=== PATIENT | female | born 1945 | race Caucasian/White ===

== ENCOUNTER 2016-06-04 15:07 | Outpatient (CLI) | payer MEDICARE | END 2016-06-04 15:08 | disposition home or self-care (01) | DX: K11.8 Other diseases of salivary glands (principal) ==

== ENCOUNTER 2017-03-28 10:51 | Day surgery (SDC) | payer MEDICARE ==
[2017-03-28] MEDS ORDERED: LACTATED RINGERS 1,000 ML IV ONE (11:29)
[2017-03-28] MEDS ORDERED: MIDAZOLAM 2 MG/2 ML VIAL IVP ONE (12:27)
[2017-03-28] MEDS ORDERED: fentaNYL 100 MCG/2 ML VIAL IVP ONE (12:27)
[2017-03-28 15:07] VITALS: BP 161/78
== END 2017-03-28 10:52 | disposition home or self-care (01) ==
LOC: SDS 10:51
PROVIDERS: ATTEND Surgery
PROC: 0DB78ZX Excision of Stomach, Pylorus, Via Natural or Artificial Opening Endoscopic, Diagnostic (ICD-10-PCS; principal; 2017-03-28 12:15)
PROC: 0DJD8ZZ Inspection of Lower Intestinal Tract, Via Natural or Artificial Opening Endoscopic (ICD-10-PCS; 2017-03-28 12:15)
DX: Z12.11 Encounter for screening for malignant neoplasm of colon (principal); K29.80 Duodenitis without bleeding; K44.9 Diaphragmatic hernia without obstruction or gangrene; K29.70 Gastritis, unspecified, without bleeding; Z86.010 Personal history of colon polyps; K64.8 Other hemorrhoids; Z79.82 Long term (current) use of aspirin
CPT/HCPCS: 43239; G0105; J7120

== ENCOUNTER 2017-05-08 11:50 | Outpatient (CLI) | payer MEDICARE ==
--- NOTE | 2017-05-10 09:22 | Mammography Report ---
DATE OF SERVICE: 05/08/2017 DIGITAL SCREENING MAMMOGRAM: 05/08/2017 CLINICAL INDICATION: A 71-year-old, for screening. COMPARISON: 03/2016, 02/2015, 01/2014, 12/2012, 12/2011, 11/2010, 07/2009. TECHNIQUE: Routine CC and MLO projections were obtained of the breasts. FINDINGS: The breasts demonstrate scattered fibroglandular densities bilaterally. Coarse and punctate, typically benign calcifications are present. No suspicious masses, clustered microcalcifications, or regions of architectural distortion are identified. IMPRESSION: BENIGN FINDINGS. RECOMMENDATION: ROUTINE ANNUAL SCREENING UNLESS OTHERWISE CLINICALLY INDICATED. BIRADS CATEGORY 2-BENIGN FINDINGS. STANDARD QUALIFYING STATEMENTS: 1. This examination was reviewed with the aid of Computer-Aided Detection (CAD). 2. A negative or benign imaging report should not delay biopsy if clinically suspicious findings are present. Consider surgical consultation if warranted. More than 5% of cancers are not identified by imaging. 3. Dense breasts may obscure an underlying neoplasm. TD: 05/10/2017 10:21
== END 2017-05-08 11:51 | disposition home or self-care (01) ==
LOC: DI.N 11:50
PROVIDERS: ATTEND Family Medicine
DX: Z12.31 Encounter for screening mammogram for malignant neoplasm of breast (principal)
CPT/HCPCS: 77067

== ENCOUNTER 2017-05-10 12:58 | Outpatient (CLI) | payer MEDICARE ==
--- NOTE | 2017-05-16 09:34 | DEXA Report ---
DATE OF SERVICE: 05/10/2017 DEXA SCAN: 05/10/2017 CLINICAL INDICATION: Postmenopausal. TECHNIQUE: Dual energy x-ray absorptiometry (DXA) was performed on a [employer] system. Regions measured are the AP spine, femoral neck, and, if needed, forearm. COMPARISON: None. In accordance with the International Society for Clinical Densitometry (ISCD) guidelines, data from previous exams may be reanalyzed using current recommendations and techniques. This is done to allow a more accurate basis for comparison with the current study. FINDINGS: The data for the lumbar spine is as follows: REGION BMD (g/cm/cm) T-SCORE Z-SCORE L1 0.885 -2.0 -0.6 L2 0.971 -1.9 -0.4 L3 1.087 -0.9 0.5 L4 1.093 -0.9 0.6 TOTAL 1.017 -1.4 0.1 NOTE: All evaluable vertebrae are used for classification. The data for the hip is as follows: REGION BMD (g/cm/cm) T-SCORE Z-SCORE Neck 0.933 -0.8 0.9 TOTAL 1.033 0.2 1.7 NOTE: The femoral neck or total proximal femur, whichever is lowest, is used for classification. IMPRESSION: THE WHO CLASSIFICATION BASED ON THE INTERNATIONAL REFERENCE STANDARD IS OSTEOPENIA. THE FRACTURE RISK IS INCREASED. RECOMMENDATION: Patients with diagnosis of osteoporosis or osteopenia should have regular bone mineral density assessment. For those eligible for Medicare, routine testing is allowed once every 2 years. Testing frequency can be increased for patients who have rapidly progressing disease or for those who are receiving medical therapy to restore bone mass. COMMENT: World Health Organization (WHO) definitions for osteoporosis and osteopenia: NORMAL BMD: T-score at 1.0 or higher, fracture risk is low. OSTEOPENIA BMD: T-score between 1.0 and -2.5, fracture risk is increased. OSTEOPOROSIS BMD: T-score at 2.5 or lower, fracture risk high. National Osteoporosis Foundation recommends 1. Obtain adequate dietary calcium (at least 1200 mg per day) and vitamin D (400 -800 international units per day). 2. Participate, as appropriate, in regular weightbearing and muscle- strengthening exercise. 3. Avoid tobacco use and reduce alcohol and caffeine intake. 4. For more detailed information see the website at www.NOF.org. TD: 05/10/2017 16:44 MTDTree
== END 2017-05-10 12:59 | disposition home or self-care (01) ==
LOC: DI 12:58
PROVIDERS: ATTEND Family Medicine
DX: M81.0 Age-related osteoporosis without current pathological fracture (principal); I10 Essential (primary) hypertension; Z78.0 Asymptomatic menopausal state
CPT/HCPCS: 77080

== ENCOUNTER 2017-07-09 08:00 | Outpatient (CLI) | payer MEDICARE ==
[2017-07-09 18:55] LABS: BASOPHILS % (AUTO) 0.6 %; EOSINOPHILS # (AUTO) 0.1 10^3/uL (0.0-0.7); EOSINOPHILS % (AUTO) 1.3 %; HGB - HEMOGLOBIN 13.3 g/dL (12.0-16.0); LYMPHOCYTES # (AUTO) 2.8 10^3/uL (1.5-3.5); LYMPHOCYTES % (AUTO) 39.6 %; MEAN CORPUSCULAR HEMOGLOBIN 30.2 pg (27.0-31.0); MEAN CORPUSCULAR HGB CONC 33.1 g/dL (32.0-36.0); MEAN CORPUSCULAR VOLUME 91.4 fL (81.0-99.0); MEAN PLATELET VOLUME 8.9 fL (7.9-10.8); MONOCYTES # (AUTO) 0.7 10^3/uL (0.0-1.0); MONOCYTES % (AUTO) 9.4 %; NEUTROPHILS # (AUTO) 3.5 10^3/uL (1.5-6.6); NEUTROPHILS % (AUTO) 49.1 %; PLT - PLATELET COUNT 269 10^3/uL (130-450); RED BLOOD COUNT 4.39 10^6/uL (4.20-5.40); RED CELL DISTRIBUTION WIDTH 13.4 % (12.0-15.0)
[2017-07-09 19:17] LABS: ALBUMIN 3.9 g/dL (3.2-5.5); ALBUMIN/GLOBULIN RATIO 1.4 (1.0-2.2); ALKALINE PHOSPHATASE 57 IU/L (42-121); ALT ALANINE AMINOTRANSFERASE 44 IU/L (10-60); AST ASPARTATE AMINOTRANSFERASE 33 IU/L (10-42); BILIRUBIN,TOTAL 0.6 mg/dL (0.2-1.0); BUN - BLOOD UREA NITROGEN 19 mg/dL (6-20); CALCIUM 8.7 mg/dL (8.5-10.3); CARBON DIOXIDE - CO2 26 mmol/L (21-32); CHLORIDE 104 mmol/L (101-111); CHOL/HDL RATIO 3.1 (<4.4); CHOLESTEROL 141 mg/dL; CREATININE 0.5 mg/dL (0.4-1.0); GFR - MDRD 121 (>89); GLUCOSE 88 mg/dL (70-100); HDL CHOLESTEROL 46 mg/dL; LDL CHOLESTEROL,CALCULATED 70 mg/dL; LDL/HDL RATIO 1.5 (<4.4); SODIUM 140 mmol/L (135-145); TOTAL PROTEIN 6.6 g/dL (6.7-8.2); VLDL CHOLESTEROL 25 mg/dL
[2017-07-09 19:51] LABS: HB2 TOTAL 14.3 g/dL; HEMOGLOBIN A1C 0.61 g/dL; HEMOGLOBIN A1C % 6.1 % (4.6-6.2)
== END 2017-07-09 08:01 | disposition home or self-care (01) ==
LOC: LAB.WCP 08:00
PROVIDERS: ATTEND Family Medicine
DX: I10 Essential (primary) hypertension (principal); R73.09 Other abnormal glucose
CPT/HCPCS: 36415; 80053; 80061; 83036; 83721; 85025

== ENCOUNTER 2017-08-16 10:59 | Outpatient (CLI) | payer MEDICARE | END 2017-08-16 11:00 | disposition home or self-care (01) | LOC: DI 10:59 | PROVIDERS: ATTEND Family Medicine | DX: R01.1 Cardiac murmur, unspecified (principal) | CPT/HCPCS: 93306 ==

== ENCOUNTER 2018-05-27 10:52 | Outpatient (CLI) | payer MEDICARE ==
--- NOTE | 2018-05-28 10:08 | Mammography Report ---
Reason: SCREENING MAMMO Procedure Date: 05/27/2018 Accession Number: [id number] / [id number] Procedure: MGN - Screening Mammo Dig Bilat CPT Code: FULL RESULT: EXAM: Screening Mammo Dig Bilat DATE: 05/27/2018 11:09 AM CLINICAL HISTORY: Screening encounter. History of early menses. History of 10 years of hormone therapy stopped 16 years ago. TECHNIQUE: Bilateral CC and MLO views were obtained. COMPARISON: 05/08/2017 through 02/18/2014. FINDINGS: The breasts demonstrate scattered fibroglandular densities bilaterally. There are coarse typically benign calcifications. No suspicious masses, clustered microcalcifications, or regions of architectural distortion are identified. IMPRESSION: Benign findings RECOMMENDATION: Routine annual screening unless otherwise clinically indicated. BIRADS CATEGORY 2: Benign findings STANDARD QUALIFYING STATEMENTS: 1. This examination was reviewed with the aid of Computer-Aided Detection (CAD). 2. A negative or benign imaging report should not preclude biopsy if clinically suspicious findings are present. 3. Dense breasts may obscure an underlying neoplasm. 4. This examination was reviewed without the aid of 3D breast imaging (tomosynthesis).
== END 2018-05-27 10:53 | disposition home or self-care (01) ==
LOC: DI.N 10:52
DX: Z12.31 Encounter for screening mammogram for malignant neoplasm of breast (principal)
CPT/HCPCS: 77067

== ENCOUNTER 2018-12-10 08:00 | Outpatient (CLI) | payer MEDICARE ==
[2018-12-10 12:14] LABS: BASOPHILS % (AUTO) 0.4 %; EOSINOPHILS # (AUTO) 0.2 10^3/uL (0.0-0.7); EOSINOPHILS % (AUTO) 2.5 %; HGB - HEMOGLOBIN 13.5 g/dL (12.0-16.0); LYMPHOCYTES # (AUTO) 3.2 10^3/uL (1.5-3.5); LYMPHOCYTES % (AUTO) 36.2 %; MEAN CORPUSCULAR HEMOGLOBIN 30.5 pg (27.0-31.0); MEAN CORPUSCULAR HGB CONC 32.4 g/dL (32.0-36.0); MEAN CORPUSCULAR VOLUME 94.3 fL (81.0-99.0); MEAN PLATELET VOLUME 10.1 fL (7.9-10.8); MONOCYTES # (AUTO) 0.8 10^3/uL (0.0-1.0); MONOCYTES % (AUTO) 8.4 %; NEUTROPHILS # (AUTO) 4.6 10^3/uL (1.5-6.6); NEUTROPHILS % (AUTO) 52.3 %; PLT - PLATELET COUNT 316 10^3/uL (130-450); RED BLOOD COUNT 4.42 10^6/uL (4.20-5.40); WHITE BLOOD COUNT 8.9 x10^3/uL (4.8-10.8)
[2018-12-10 12:39] LABS: HB2 TOTAL 14.3 g/dL; HEMOGLOBIN A1C 0.63 g/dL; HEMOGLOBIN A1C % 6.2 % (4.6-6.2)
[2018-12-10 12:44] LABS: ALBUMIN/GLOBULIN RATIO 1.2 (1.0-2.2); ALKALINE PHOSPHATASE 57 IU/L (42-121); ALT ALANINE AMINOTRANSFERASE 40 IU/L (10-60); AST ASPARTATE AMINOTRANSFERASE 33 IU/L (10-42); BILIRUBIN,TOTAL 0.7 mg/dL (0.2-1.0); BUN - BLOOD UREA NITROGEN 19 mg/dL (6-20); CALCIUM 9.3 mg/dL (8.5-10.3); CARBON DIOXIDE - CO2 24 mmol/L (21-32); CHLORIDE 106 mmol/L (101-111); CHOL/HDL RATIO 3.6 (<4.4); CHOLESTEROL 199 mg/dL; CREATININE 0.7 mg/dL (0.4-1.0); GFR - MDRD 82 (>89); GLUCOSE 116 mg/dL (70-100); HDL CHOLESTEROL 56 mg/dL; LDL CHOLESTEROL,CALCULATED 116 mg/dL; LDL/HDL RATIO 2.1 (<4.4); SODIUM 141 mmol/L (135-145); TOTAL PROTEIN 7.3 g/dL (6.7-8.2); VLDL CHOLESTEROL 27 mg/dL
== END 2018-12-10 23:59 | disposition home or self-care (01) ==
LOC: LAB.WCP 08:00
PROVIDERS: ATTEND Family Medicine
DX: I10 Essential (primary) hypertension (principal); R73.01 Impaired fasting glucose
CPT/HCPCS: 36415; 80053; 80061; 83036; 83721; 85025

== ENCOUNTER 2020-03-15 15:41 | Outpatient (CLI) | payer MEDICARE ==
--- NOTE | 2020-03-15 17:06 | XRAY Report ---
PROCEDURE: Knee 2 View LT INDICATIONS: LEFT HIP PAIN, LT KNEE ARTHRITIS TECHNIQUE: 2 views of the left knee(s) were acquired. COMPARISON: None. FINDINGS: Bones: No acute fractures or dislocations. Moderate tricompartmental osteoarthrosis of the left knee . No suspicious bony lesions. Soft tissues: No substantial joint effusion. No suspicious soft tissue calcifications. IMPRESSION: Left knee without acute radiographic abnormalities. Moderate tricompartmental left knee osteoarthrosis. Reviewed by: Carlos Goodman MD on 03/15/2020 5:04 PM PST Approved by: Carlos Goodman MD on 03/15/2020 5:04 PM PST Station ID: [id number]
--- NOTE | 2020-03-15 17:09 | XRAY Report ---
PROCEDURE: Pelvis 1 View INDICATIONS: LEFT HIP PAIN, LT KNEE ARTHRITIS TECHNIQUE: AP view(s) of the pelvis acquired. COMPARISON: None. FINDINGS: Bones: No acute fractures or dislocations. No suspicious bony lesions. Lower lumbar spondylosis. De generative changes of the bilateral femoroacetabular joints more pronounced on the left. Soft tissues: Visualized bowel gas pattern is normal. No suspicious soft tissue calcifications. IMPRESSION: Bilateral hip degenerative change more pronounced on the left. Lower lumbar spondylosis. Reviewed by: Carlos Goodman MD on 03/15/2020 5:08 PM PST Approved by: Carlos Goodman MD on 03/15/2020 5:08 PM PST Station ID: [id number]
== END 2020-03-15 15:42 | disposition home or self-care (01) ==
LOC: DI 15:41
PROVIDERS: ATTEND Family Medicine
DX: M16.0 Bilateral primary osteoarthritis of hip (principal); M17.12 Unilateral primary osteoarthritis, left knee; M47.816 Spondylosis without myelopathy or radiculopathy, lumbar region
CPT/HCPCS: 72170

== ENCOUNTER 2020-03-31 08:00 | Outpatient (CLI) | payer MEDICARE | END 2020-03-31 23:59 | disposition home or self-care (01) | LOC: LAB.R 08:00 | PROVIDERS: ATTEND Physician Assistant Medical | DX: R30.0 Dysuria (principal) | CPT/HCPCS: 81002; 87086; 87181 ==

== ENCOUNTER 2020-04-12 14:07 | Outpatient (CLI) | payer MEDICARE ==
--- NOTE | 2020-04-12 15:04 | DEXA Report ---
PROCEDURE: Dexa Spine and/or Hip INDICATIONS: BONE DISORDER TECHNIQUE: Dual energy x-ray absorptiometry (DXA) was performed on a [employer] System. Regions measur ed are the AP Spine, femoral neck, and if needed forearm. COMPARISON: 05/10/2017. FINDINGS: Lumbar Spine: Bone Mineral Density 1.065 g/cm/cm,T score -1.0, normal bone mineral density Left Femoral Neck: Bone Mineral Density 0.992 g/cm/cm, T score -0.1, normal bone mineral density (T score greater or equal to -1.0: NORMAL) (T score from -1.1 to -2.4: OSTEOPENIA) (T score less than or equal to -2.5 to: OSTEOPOROSIS) Impression: Normal bone mineral density Patients with diagnosis of osteoporosis or osteopenia should have regular bone mineral density assess ment. For those eligible for Medicare, routine testing is allowed once every 2 years. Testing frequ ency can be increased for patients who have rapidly progressing disease or for those who are receivin g medical therapy to restore bone mass. Reviewed by: Carlos Goodman MD on 04/12/2020 3:03 PM PST Approved by: Carlos Goodman MD on 04/12/2020 3:03 PM PST Station ID: [id number]
== END 2020-04-12 14:08 | disposition home or self-care (01) ==
LOC: DI 14:07
PROVIDERS: ATTEND Family Medicine
DX: M89.9 Disorder of bone, unspecified (principal)

== ENCOUNTER 2020-04-12 14:09 | Outpatient (CLI) | payer MEDICARE ==
--- NOTE | 2020-04-13 10:33 | Mammography Report ---
BILATERAL DIGITAL SCREENING MAMMOGRAM 3D/2D: 04/12/2020 CLINICAL: Routine screening. Comparison is made to exams dated: 05/27/2018 mammogram, 05/08/2017 mammogram, 04/05/2016 mammogram, mammogram, 02/18/2013 mammogram, and 01/21/2013 mammogram - [facility]. Th ere are scattered fibroglandular elements in both breasts. No significant masses, calcifications, or other findings are seen in either breast. There has been no significant interval change. IMPRESSION: NEGATIVE There is no mammographic evidence of malignancy. A 1 year screening mammogram is recommended. This exam was interpreted at Station ID: [id number]. NOTE: For mammograms, a report in lay terms will be sent to the patient. Approximately 15% of breast malignancies will not be visualized mammographically. In the management of a palpable breast mass, a negative mammogram must not discourage biopsy of a clinically suspicious lesion. Electronically Signed By: Efrain Michelle M.D. [email or web address]:04/12/2020 15:15:33 ACR BI-RADS Category 1: Negative 3341F PARENCHYMAL PATTERN: (A) - The breast(s) demonstrate(s) scattered fibroglandular densities. BI-RADS CATEGORY: (1) - 1 RECOMMENDATION: (ANNUAL) - Recommend routine annual screening mammography. [id number] 1 year screening LATERALITY: (B)
== END 2020-04-12 14:10 | disposition home or self-care (01) ==
LOC: DI 14:09
DX: Z12.31 Encounter for screening mammogram for malignant neoplasm of breast (principal)
CPT/HCPCS: 77067

== ENCOUNTER 2020-06-17 16:23 | Outpatient (CLI) | payer MEDICARE ==
[2020-06-17 18:35] LABS: BILIRUBIN,URINE NEGATIVE (NEGATIVE); GLUCOSE, URINE (UA) NEGATIVE (NEGATIVE); KETONES,URINE (UA) TRACE mg/dL (NEGATIVE); LEUKOCYTE ESTERASE, URINE NEGATIVE (NEGATIVE); NITRITE,URINE NEGATIVE (NEGATIVE); OCCULT BLOOD,URINE SMALL (NEGATIVE); PH,URINE 5.5 PH (5.0-7.5); PROTEIN,URINE 100 mg/dL (NEGATIVE); UROBILINOGEN,URINE 0.2 (NORMAL) E.U./dL (NORMAL)
[2020-06-17 18:36] LABS: BASOPHILS # (AUTO) 0.1 10^3/uL (0.0-0.1); BASOPHILS % (AUTO) 0.3 %; EOSINOPHILS # (AUTO) 0.1 10^3/uL (0.0-0.7); EOSINOPHILS % (AUTO) 0.9 %; HGB - HEMOGLOBIN 11.4 g/dL (12.0-16.0); LYMPHOCYTES # (AUTO) 2.8 10^3/uL (1.5-3.5); LYMPHOCYTES % (AUTO) 19.6 %; MEAN CORPUSCULAR HEMOGLOBIN 31.1 pg (27.0-31.0); MEAN CORPUSCULAR HGB CONC 32.9 g/dL (32.0-36.0); MEAN CORPUSCULAR VOLUME 94.8 fL (81.0-99.0); MEAN PLATELET VOLUME 9.8 fL (7.9-10.8); MONOCYTES # (AUTO) 1.3 10^3/uL (0.0-1.0); MONOCYTES % (AUTO) 8.9 %; NEUTROPHILS # (AUTO) 10.1 10^3/uL (1.5-6.6); PLT - PLATELET COUNT 599 10^3/uL (130-450); RED BLOOD COUNT 3.66 10^6/uL (4.20-5.40); RED CELL DISTRIBUTION WIDTH 13.7 % (12.0-15.0); WHITE BLOOD COUNT 14.4 x10^3/uL (4.8-10.8)
[2020-06-17 18:40] LABS: BACTERIA,URINE Rare /HPF (None Seen); CLARITY,URINE CLEAR (CLEAR); RBC,URINE 0-5 /HPF (0-5); SQUAMOUS EPITHELIAL CELL,UR FEW Squamous (<= Few)
[2020-06-17 18:41] LABS: CRYSTALS,URINE 6-10 Calcium Oxalate /LPF
[2020-06-17 18:59] LABS: ALBUMIN 3.8 g/dL (3.2-5.5); BILIRUBIN,TOTAL 0.8 mg/dL (0.2-1.0); CALCIUM 9.2 mg/dL (8.5-10.3); CREATININE 0.6 mg/dL (0.4-1.0); TOTAL PROTEIN 7.5 g/dL (6.7-8.2)
== END 2020-06-17 23:59 | disposition home or self-care (01) ==
LOC: LAB.N 16:23
PROVIDERS: ATTEND Nurse Practitioner
DX: R19.7 Diarrhea, unspecified (principal)
CPT/HCPCS: 36415; 80053; 81001; 82150; 83690; 85025; 87086

== ENCOUNTER 2020-07-21 15:38 | Outpatient (CLI) | payer MEDICARE ==
[2020-07-21 17:57] LABS: BASOPHILS % (AUTO) 0.4 %; EOSINOPHILS # (AUTO) 0.1 10^3/uL (0.0-0.7); EOSINOPHILS % (AUTO) 0.7 %; HCT - HEMATOCRIT 39.1 % (37.0-47.0); HGB - HEMOGLOBIN 12.7 g/dL (12.0-16.0); LYMPHOCYTES # (AUTO) 3.6 10^3/uL (1.5-3.5); LYMPHOCYTES % (AUTO) 32.2 %; MEAN CORPUSCULAR HEMOGLOBIN 31.1 pg (27.0-31.0); MEAN CORPUSCULAR HGB CONC 32.5 g/dL (32.0-36.0); MEAN CORPUSCULAR VOLUME 95.8 fL (81.0-99.0); MEAN PLATELET VOLUME 10.5 fL (7.9-10.8); MONOCYTES % (AUTO) 8.8 %; NEUTROPHILS # (AUTO) 6.4 10^3/uL (1.5-6.6); NEUTROPHILS % (AUTO) 57.6 %; PLT - PLATELET COUNT 447 10^3/uL (130-450); RED BLOOD COUNT 4.08 10^6/uL (4.20-5.40); RED CELL DISTRIBUTION WIDTH 13.5 % (12.0-15.0); WHITE BLOOD COUNT 11.1 x10^3/uL (4.8-10.8)
[2020-07-21 20:38] LABS: CALCIUM 10.5 mg/dL (8.5-10.3); CREATININE 0.6 mg/dL (0.4-1.0); POTASSIUM 3.7 mmol/L (3.5-5.0)
== END 2020-07-21 23:59 | disposition home or self-care (01) ==
LOC: LAB.WCP 15:38
PROVIDERS: ATTEND Family Medicine
DX: R19.7 Diarrhea, unspecified (principal); D64.9 Anemia, unspecified
CPT/HCPCS: 36415; 80048; 85025

== ENCOUNTER 2020-10-28 09:37 | Outpatient (CLI) | payer MEDICARE ==
[2020-10-28 11:59] LABS: BASOPHILS # (AUTO) 0.1 10^3/uL (0.0-0.1); BASOPHILS % (AUTO) 0.8 %; EOSINOPHILS # (AUTO) 0.1 10^3/uL (0.0-0.7); EOSINOPHILS % (AUTO) 1.8 %; HCT - HEMATOCRIT 41.3 % (37.0-47.0); HGB - HEMOGLOBIN 13.6 g/dL (12.0-16.0); LYMPHOCYTES # (AUTO) 2.1 10^3/uL (1.5-3.5); LYMPHOCYTES % (AUTO) 27.7 %; MEAN CORPUSCULAR HEMOGLOBIN 30.2 pg (27.0-31.0); MEAN CORPUSCULAR HGB CONC 32.9 g/dL (32.0-36.0); MEAN CORPUSCULAR VOLUME 91.6 fL (81.0-99.0); MEAN PLATELET VOLUME 10.3 fL (7.9-10.8); MONOCYTES # (AUTO) 0.8 10^3/uL (0.0-1.0); MONOCYTES % (AUTO) 10.8 %; NEUTROPHILS # (AUTO) 4.3 10^3/uL (1.5-6.6); NEUTROPHILS % (AUTO) 58.6 %; PLT - PLATELET COUNT 388 10^3/uL (130-450); RED BLOOD COUNT 4.51 10^6/uL (4.20-5.40); RED CELL DISTRIBUTION WIDTH 13.9 % (12.0-15.0); WHITE BLOOD COUNT 7.4 x10^3/uL (4.8-10.8)
[2020-10-28 12:31] LABS: % IRON SATURATION 17 % (20-50); ALBUMIN 4.1 g/dL (3.2-5.5); ALBUMIN/GLOBULIN RATIO 1.2 (1.0-2.2); ALKALINE PHOSPHATASE 69 IU/L (42-121); ALT ALANINE AMINOTRANSFERASE 24 IU/L (10-60); AST ASPARTATE AMINOTRANSFERASE 23 IU/L (10-42); BILIRUBIN,TOTAL 0.6 mg/dL (0.2-1.0); BUN - BLOOD UREA NITROGEN 16 mg/dL (6-20); CALCIUM 9.3 mg/dL (8.5-10.3); CARBON DIOXIDE - CO2 29 mmol/L (21-32); CHLORIDE 99 mmol/L (101-111); CHOL/HDL RATIO 2.9 (<4.4); CHOLESTEROL 194 mg/dL; CREATININE 0.6 mg/dL (0.4-1.0); GFR - MDRD 97 (>89); GLUCOSE 104 mg/dL (70-100); HDL CHOLESTEROL 67 mg/dL; IRON 62 ug/dL (28-170); LDL CHOLESTEROL,CALCULATED 100 mg/dL; LDL/HDL RATIO 1.5 (<4.4); SODIUM 137 mmol/L (135-145); TOTAL IRON BINDING CAPACITY 365 ug/dL (250-450); TOTAL PROTEIN 7.5 g/dL (6.7-8.2); TRANSFERRIN 261 mg/dL (192-382); TRIGLYCERIDES 134 mg/dL; VLDL CHOLESTEROL 27 mg/dL
[2020-10-28 12:41] LABS: FERRITIN 46.6 ng/mL (11.0-306.8)
[2020-10-28 12:53] LABS: ESTIMATED AVERAGE GLUCOSE 143 mg/dL (70-100); HEMOGLOBIN A1c% 6.6 % (4.27-6.07)
== END 2020-10-28 23:59 | disposition home or self-care (01) ==
LOC: LAB.WCP 09:37
PROVIDERS: ATTEND Family Medicine
DX: I10 Essential (primary) hypertension (principal); K62.5 Hemorrhage of anus and rectum; D64.9 Anemia, unspecified; R73.01 Impaired fasting glucose
CPT/HCPCS: 36415; 80053; 80061; 82607; 82728; 83036; 83540; 83721; 84466; 85025

== ENCOUNTER 2020-11-18 13:44 | Inpatient (IN) | payer MEDICARE ==
[~2020-11-18 13:44] MED LIST: LACTATED RINGERS 400 ML IV ONE
[2020-11-18] MEDS ORDERED: LACTATED RINGERS 1,000 ML IV ONE (14:22)
--- NOTE | 2020-11-18 14:35 | ANESTHESIA ---
Pre-Anesthesia VS, & Labs - Diagnosis Hemorrhoid, BRBPR, Hematochezia, - Procedure Hemorrhoidectomy, EUA, Colonoscopy Height: 5 ft 1 in Weight (kg): 59 kg Body Mass Index: 24.5 BMI Classification: Healthy weight - NPO >8 hours - Is Patient ?: No - Lab Results Lab results reviewed: Yes Home Medications and Allergies Home Medications: Ambulatory Orders Omeprazole [PriLOSEC] 20 mg PO DAILY 11/17/20 amLODIPine [Norvasc] 10 mg PO DAILY 11/17/20 Nortriptyline [Pamelor] 25 mg PO DAILY 03/27/17 lisinopriL [Lisinopril] 10 mg PO DAILY 03/27/17 Omeprazole [PriLOSEC] 20 mg PO DAILY 11/17/20 amLODIPine [Norvasc] 10 mg PO DAILY 11/17/20 Allergies/Adverse Reactions: Allergies Allergy/AdvReac Type Severity Reaction Status Date / Time Sulfa (Sulfonamide Allergy Mild Rash Verified 03/27/17 14:03 Antibiotics) Anes History & Medical History - Anesthetic History Anesthesia Complications: reports: Post-Operative Nausea/Vomiting Family history of Anesthesia Complications: Denies Family history of Malignant Hyperthermia: Denies - Medical History Cardiovascular: reports: Hypertension Pulmonary: reports: None Gastrointestinal: reports: GERD, Hemorrhoids Urinary: reports: Kidney stones Musculoskeletal: reports: Osteoarthritis Endocrine/Autoimmune: reports: None Skin: reports: None - Surgical History General: reports: Colonoscopy, Other Gynecologic: reports: Hysterectomy Orthopedic: reports: Knee replacement, Other Exam General: Alert, Oriented x3, Cooperative, No acute distress Dental: WNL Mouth Openin Fingerbreadth Neck Mobility: Normal Mallampati classification: II Respiratory: Lungs clear, Normal breath sounds, No respiratory distress, No accessory muscle use Cardiovascular: Regular rate, Normal S1, Normal S2, No murmurs Plan Anesthesia Type: General, Total IV Consent for Procedure(s) Verified and Reviewed: Yes Code Status: Attempt Resuscitation ASA classification: 2-Mild systemic disease Is this case an emergency?: No
[2020-11-18] MEDS ORDERED: DEXAMETHASONE 4 MG/ML VIAL ONE (14:39)
[2020-11-18] MEDS ORDERED: ONDANSETRON 4 MG/2 ML VIAL ONE (14:39)
[2020-11-18] MEDS ORDERED: PROPOFOL 200 MG/20 ML VIAL IVP ONE (14:39)
[2020-11-18] MEDS ORDERED: LIDOCAINE-MPF 2% 5 ML VIAL ONE (14:39)
[2020-11-18] MEDS ORDERED: metroNIDAZOLE 500 MG/100 ML 500 MG/100 ML BAG ONE (14:41)
[2020-11-18] MEDS ORDERED: CIPROFLOXACIN 400 MG/200 ML 400 MG/200 ML BAG IV ONE (14:42)
[2020-11-18] MEDS ORDERED: SCOPOLAMINE PATCH TOP ONE (15:05)
[2020-11-18] MEDS ORDERED: METOCLOPRAMIDE 10 MG/2 ML VIAL IVP PRN (15:06)
[2020-11-18] MEDS ORDERED: ONDANSETRON 4 MG/2 ML VIAL IVP PRN ×2 (15:06→19:09)
[2020-11-18] MEDS ORDERED: HYDROmorphone 0.5 MG/0.5 ML SYRINGE IVP PRN ×2 (15:06→19:09)
[2020-11-18] MEDS ORDERED: ePHEDrine 50 MG/ML VIAL IVP PRN (15:06)
[2020-11-18] MEDS ORDERED: fentaNYL 100 MCG/2 ML VIAL IVP PRN (15:06)
[2020-11-18] MEDS ORDERED: ATROPINE ABBOJECT 1 MG/10 ML SYRINGE IVP PRN (15:06)
[2020-11-18] MEDS ORDERED: NALOXONE 0.4 MG/ML VIAL IVP PRN (15:06)
[2020-11-18] MEDS ORDERED: MORPHINE 2 MG/ML CARPUJECT IVP PRN (15:06)
[2020-11-18] MEDS ORDERED: SCOPOLAMINE PATCH TOP SCH (16:00)
[2020-11-18] MEDS ORDERED: LACTATED RINGERS 1,000 ML IV SCH (16:00)
[2020-11-18] MEDS ORDERED: LIDOCAINE 2%-EPI 1:100000 20 ML MDV ONE (16:18)
[2020-11-18] MEDS ORDERED: BUPIVACAINE 0.5%-EPI 1:200000 PF 30 ML VIAL ONE (16:18)
[2020-11-18] MEDS ORDERED: BUPIVACAINE 0.5%-EPI 1:200000 PF 30 ML VIAL SUBQ ONE (16:22)
[2020-11-18] MEDS ORDERED: fentaNYL 100 MCG/2 ML VIAL ONE (17:46)
[2020-11-18] MEDS ORDERED: PROPOFOL 1000 MG/100 ML 1,000 MG/100 ML BOTTLE IV ONE (18:06)
[2020-11-18] MEDS ORDERED: oxyCODONE 5 MG TABLET PO PRN (19:09)
[2020-11-18] MEDS ORDERED: polyethylene glycoL 3350 17 GM PACKET PO PRN (19:09)
[2020-11-18] MEDS ORDERED: ACETAMINOPHEN 1,000 MG/100 ML 100 ML IV ONE (19:09)
[2020-11-18] MEDS: HYDROmorphone 1 MG/ML CARPUJECT ONE ×2 (19:10→19:16)
--- NOTE | 2020-11-18 19:16 | OPERATIVE REPORT ---
Operative Report - General Admit Date: 11/18/20 Procedure Date: 11/18/20 Planned Procedure: 1. Intraoperative colonoscopy 2. Examined anesthesia 3. Possible hemorrhoidectomy 4. Possible proctoplasty 5. Other indicated procedures Pre-Op Diagnosis: Bright red blood per rectum; hemorrhoidal prolapse; multiple prior anorecta Procedure Performed: 1. Examined anesthesia 2. Intraoperative colonoscopy 3. Altmeyer procedure 4. Rectocele repair 5. Levator plasty 6. Pudendal block Post Op Diagnosis: Rectal prolapse; rectocele; sphincteric laxity - Procedure Note Primary Surgeon: Nilda Secondary Surgeon: Tahira Anesthesia Provider: Ethan Anesthesia Technique: General LMA, Local, Regional block Pathology: rectum Estimated Blood Loss (mL): 150 Indications: See EMR Findings: 1. Redundant tortuous colon on colonoscopy 2. No polyps or other pathology appreciated 3. Rectal prolapse on exam under anesthesia 4. Rectocele 5. Sphincteric thinning 6. Complex repair Complications: NONE - Other Other Information/Narrative: OPERATIVE REPORT: The patient was taken to operating room after informed consent was obtained and confirmed. The patient at this time was placed for bilateral lower extremity serial compression devices and induced for general endotracheal anesthesia. After this was achieved, the patient was placed in lithotomy. Once completed, the patient was prepped and draped in the usual sterile fashion, and perioperative antibiotics of were dosed within an hour of incision. At this time, the patient was performed for a digital rectal, which was notable for pertinent positives as listed above per below. The patient, thereafter, was then inserted for the colonoscope, which was passed as stated above with noted necessary postural changes or counter-pressure as mentioned in the above listed procedural findings. Prep was as noted above as well. Findings were normal. Biopsies were taken. The caecum was achieved as noted by both the ileocecal valve and the appendiceal orifice, both of which were documented in the permanent medical record by photography. The ileocaecal valve was attempted for intubation with findings as listed above. Thereafter, careful circumferential colonoscopic evaluation commenced starting at the level of the caecum and continuing through to the rectosigmoid junction with notable findings as reported above, and polyps or biopsies performed as per above as well. On continued slow withdrawal of the colonoscope the rectosigmoid junction was achieved and rectal findings are as listed above as well. Retroflexion if performed was noted for above listed findings. Findings on retroflexion inflamed mucosa consistent with rectal prolapse. The patient tolerated the procedure well for which there was no complication. Anorectal exam: Inspection: External Hemorrhoids -none Fissure in ano -none Erythema (perianal) -none Other -N/A Palpation: Fluctuance -none Palpable cord -none Scar tissue -none Induration -none Digital Rectal Exam: Rectal Tone -exceedingly poor Fluctuance -none Sphincter -exceedingly thin Masses -none Rectocele -large anterior Anoscopy: Hemorrhoids -no hemorrhoidal prolapse however full-thickness circumferential rectal prolapse appreciated Bleeding -none Distal proctitis -positive The patient and I had a lengthy discussion as it relates to her constellation of symptoms and patient had been seen by Dr. Brittney Bianchi as well as myself. This was likely rectal prolapse as opposed to hemorrhoidal disease. It was clear from exam under anesthesia that we are correcting her preoperative assessment. At this time, after the patient was prepped and draped and time-out was called and agreed to by all in the room, the rectum was prolapsed. A line was demarcated with Bovie electrocautery 1 cm proximal to the dentate circumferentially. After the rectal prolapse was induced with careful traction using Antonia clamps, we proceeded to incise the first layer of prolapse, performing this circumferentially and carefully with Bovie electrocautery. Once the rectum was completely transected from this line of the demarcation again 1 cm proximal to dentate line, mesorectum was addressed using Antonia clamps and an LigaSure energy device with the distal pedicle ultimately tied using 0 Vicryl ligatures. Please note the [place] retractor was placed for exposure. The rectum thereafter were prolapsed further with great care. Once adequate margin was achieved towards avoiding any significant torsion or tension on the anastomosis, the mesentery was again divided at the level of proximal colonic margin, again as before with a Antonia clamp and Ligasure energy device with the pedicle secured with an 0 Vicryl ligature. Once this was completed and the planned proximal transection site chosen, the [place] retractor was adjusted, and 8 sutures were placed through the distal rectum at the anorectal junction full-thickness anterior, posterior, laterally, and thereafter each of the 4 quadrants divided in half. These 2-0 Vicryl sutures were kept tagged with needles in place. With this exposure we were afforded ability to perform reconstitution of the rectovaginal septum and proceeded to perform simple interrupted's with PDS suture of the rectovaginal fascia. There was as a consequence very good apposition of the rectovaginal fascia with correction of the rectocele to its upper palpable limit. Thereafter, the deep external sphincter muscle was found and brought together with interrupted 0 PDS sutures x3. In so doing a levator plasty was performed to strengthen the patient's pelvic floor and sphincter as well. At this time, with the prolapse colon appearing viable and mesentery divided, a colotomy was made anteriorly full-thickness using Bovie electrocautery, and this was thereafter used to place the first anchoring stitch with the anterior tagged 2-0 Vicryl. This was tied and again tagged, and then the dissection was continued laterally where this was similarly performed in a circumferential alternating fashion counterclockwise and clockwise, towards securing all eight of the transfixation stitches as part of the anastomosis proceeding posteriorly. After complete division the specimen was passed for permanent pathology. At this time, we proceeded to complete the anastomosis using the sutures and tags for traction. Once this was completed, Hill-Roach retractor was placed i n colon and each of the 8 quadrants for one stitch was sutured and tied with good apposition of mucosa; thus the consequence was a full-thickness, hand sewn coloproctostomy. After the anastomosis was completed it was intact with no gaps and no torsion or tension and was hemostatic. The [place] retractor was thereafter removed, and with the anastomosis again checked for hemostasis, which was achieved, and again no tension or torsion noted, local was also instilled for perioperative analgesia and pudendal block. The patient tolerated the procedure well for which there was no complication. Tw o sheets of Surgicel were placed in the anal canal for hemostasis. The patient was taken to postanesthesia care unit, extubated, and in stable condition. I was present for the entirety of this operative case, and again, all counts for sponges, needles, and instruments were correct at conclusion of this operative intervention. The patient was placed for a Silva catheter prior to extubation. 2 sheets of Surgicel was placed in the anal canal as well.
--- NOTE | 2020-11-18 19:48 | ANESTHESIA POST OP EVALUATION ---
Anesthesia Post Eval - Post Anesthesia Eval Vitals: Last Vital Signs Temp 37.2 C 11/18/20 19:36 Pulse 78 11/18/20 19:36 Resp 16 11/18/20 19:36 BP 149/60 H 11/18/20 19:36 Pulse Ox 98 11/18/20 19:36 CV Function Including HR & BP: Stable Pain Control: Satisfactory Nausea & Vomiting: Negative Mental Status: Baseline Respiratory Status: Airway Patent Hydration Status: Satisfactory Anesthesia Complications: None
[2020-11-18] MEDS ORDERED: CIPROFLOXACIN 400 MG/200 ML 400 MG/200 ML BAG IV SCH (20:00)
[2020-11-18] MEDS ORDERED: metroNIDAZOLE 500 MG/100 ML 500 MG/100 ML BAG IV SCH (20:00)
--- NOTE | 2020-11-18 20:02 | PROVIDER PROGRESS NOTE ---
Progress Note BRIEF Operative Report - General Admit Date: 11/18/20 Planned Procedure: 1. Intraoperative colonoscopy 2. Examined anesthesia 3. Possible hemorrhoidectomy 4. Possible proctoplasty 5. Other indicated procedures Pre-Op Diagnosis: Bright red blood per rectum; hemorrhoidal prolapse; multiple prior anal procedure Procedure Performed: 1. Examined anesthesia 2. Intraoperative colonoscopy 3. Altmeyer procedure 4. Rectocele repair 5. Levator plasty 6. Pudendal block Post Op Diagnosis: Rectal prolapse; rectocele; sphincteric laxity - Procedure Note Primary Surgeon: Nilda Secondary Surgeon: Tahira Anesthesia Provider: Ethan Anesthesia Technique: General LMA, Local, Regional block Pathology: rectum Estimated Blood Loss (mL): 150 Indications: See EMR Findings: 1. Redundant tortuous colon on colonoscopy 2. No polyps or other pathology appreciated 3. Rectal prolapse on exam under anesthesia 4. Rectocele 5. Sphincteric thinning 6. Complex repair Complications: NONE
[2020-11-18] MEDS: D5NS W/20 MEQ KCL 1,000 ML IV SCH (20:22)
[2020-11-18] MEDS: DOCUSATE SODIUM 100 MG CAPSULE PO SCH (21:17)
[2020-11-18] MEDS: polyethylene glycoL 3350 17 GM PACKET PO SCH (21:17)
[2020-11-19] MEDS: methocarbamoL 500 MG TABLET PO SCH ×5 (00:12→23:38)
[2020-11-19] MEDS: METOCLOPRAMIDE 10 MG/2 ML VIAL IVP SCH ×5 (00:12→23:38)
[2020-11-19] MEDS: metroNIDAZOLE 500 MG/100 ML 500 MG/100 ML BAG IV SCH ×3 (00:25→18:28)
[2020-11-19] MEDS: CIPROFLOXACIN 400 MG/200 ML 400 MG/200 ML BAG IV SCH ×2 (04:30→17:08)
[2020-11-19] MEDS: D5NS W/20 MEQ KCL 1,000 ML IV SCH ×2 (04:30→14:35)
[2020-11-19] MEDS: PANTOPRAZOLE 40 MG TABLET PO SCH (06:09)
[2020-11-19 06:53] LABS: BASOPHILS % (AUTO) 0.2 %; EOSINOPHILS % (AUTO) 0.1 %; HCT - HEMATOCRIT 33.8 % (37.0-47.0); HGB - HEMOGLOBIN 11.2 g/dL (12.0-16.0); LYMPHOCYTES # (AUTO) 1.2 10^3/uL (1.5-3.5); LYMPHOCYTES % (AUTO) 9.4 %; MEAN CORPUSCULAR HEMOGLOBIN 30.1 pg (27.0-31.0); MEAN CORPUSCULAR HGB CONC 33.1 g/dL (32.0-36.0); MEAN CORPUSCULAR VOLUME 90.9 fL (81.0-99.0); MEAN PLATELET VOLUME 10.2 fL (7.9-10.8); MONOCYTES # (AUTO) 0.9 10^3/uL (0.0-1.0); MONOCYTES % (AUTO) 7.4 %; NEUTROPHILS # (AUTO) 10.5 10^3/uL (1.5-6.6); NEUTROPHILS % (AUTO) 82.4 %; PLT - PLATELET COUNT 326 10^3/uL (130-450); RED BLOOD COUNT 3.72 10^6/uL (4.20-5.40); RED CELL DISTRIBUTION WIDTH 13.6 % (12.0-15.0); WHITE BLOOD COUNT 12.7 x10^3/uL (4.8-10.8)
[2020-11-19 07:07] LABS: ALBUMIN 3.4 g/dL (3.2-5.5); ALBUMIN/GLOBULIN RATIO 1.2 (1.0-2.2); BILIRUBIN,TOTAL 0.8 mg/dL (0.2-1.0); CALCIUM 8.6 mg/dL (8.5-10.3); CREATININE 0.5 mg/dL (0.4-1.0); POTASSIUM 4.1 mmol/L (3.5-5.0); TOTAL PROTEIN 6.2 g/dL (6.7-8.2)
[2020-11-19] MEDS: polyethylene glycoL 3350 17 GM PACKET PO SCH ×2 (09:18→21:36)
[2020-11-19] MEDS: ENOXAPARIN 40 MG/0.4 ML SYRINGE SUBQ SCH (09:18)
[2020-11-19] MEDS: DOCUSATE SODIUM 100 MG CAPSULE PO SCH ×2 (09:18→21:36)
--- NOTE | 2020-11-19 15:06 | PHARMACY PROGRESS NOTE ---
- Best Possible Medication History Admit Date and Time: 11/18/201910 Processed by: Nursing Medication History completed: Yes Patient Interview: Completed Secondary Source(s): Pharmacy records, Insurance records As the person ultimately responsible for medication therapy, providers are able to order a medication from an existing home medication list in [facility] via the "Reconcile Routine" prior to Confirmation of that medication by application support intern. Such practice is discouraged except when the physician, in their clinical judgment, deems that a medical need exists for a medication without regard to previous use.
--- NOTE | 2020-11-19 16:17 | PROVIDER PROGRESS NOTE ---
Progress Note Subjective: No flatus. No bowel movement. Pending trial of void. Status post below listed procedures Pre-Op Diagnosis: Bright red blood per rectum; hemorrhoidal prolapse; multiple prior anorectal procedures Procedure Performed: 1. Examined anesthesia 2. Intraoperative colonoscopy 3. Altmeyer procedure 4. Rectocele repair 5. Levator plasty 6. Pudendal block Post Op Diagnosis: Rectal prolapse; rectocele; sphincteric laxity Objective Afebrile hemodynamically acceptable General Appearance: positive: No acute distress Eyes Bilateral: positive: Normal inspection ENT: positive: ENT inspection nml Neck: positive: Nml inspection Respiratory: positive: Chest non-tender, No respiratory distress, Breath sounds nml. negative: Wheezes, Rales, Rhonchi Cardiovascular: positive: Regular rate & rhythm Abdomen: positive: No distention, Other. negative: Guarding, Rebound Extremities: positive: Non-tender, Full ROM, Nml appearance Neurologic/Psychiatric: positive: Oriented x3, CN's nml (2-12) Impression/Plan Postoperative day #1 status post above listed procedures. (1) GI - IVF, bowel regimen, advance diet as tolerated. GI ppx. Opiate sparring analgesia. NOTHING PER RECTUM. (2) SURGERY - NOTHING PER RECTUM. Remove packing tomorrow. (3) Renal/Lytes - continue IVF. Renal indices within normal limits. Discontinue Silva. (4) Respiratory - O2 as necessary. Continue IS. (5) Heme - Will continue with DVT ppx. H/H stable. (6) Cardiovascular - HD acceptable. (7) Neuro - Opiate sparring analgesia. Antispasmodics with Robaxin. (8) Immune/Infectious Disease - continue antibiotics.
[2020-11-20] MEDS: metroNIDAZOLE 500 MG/100 ML 500 MG/100 ML BAG IV SCH ×2 (01:03→09:00)
[2020-11-20] MEDS: CIPROFLOXACIN 400 MG/200 ML 400 MG/200 ML BAG IV SCH (05:30)
[2020-11-20] MEDS: methocarbamoL 500 MG TABLET PO SCH ×2 (05:31→12:27)
[2020-11-20] MEDS: METOCLOPRAMIDE 10 MG/2 ML VIAL IVP SCH ×2 (05:31→12:27)
[2020-11-20] MEDS: PANTOPRAZOLE 40 MG TABLET PO SCH (05:31)
[2020-11-20 06:41] LABS: BASOPHILS # (AUTO) 0.1 10^3/uL (0.0-0.1); BASOPHILS % (AUTO) 0.5 %; EOSINOPHILS # (AUTO) 0.1 10^3/uL (0.0-0.7); EOSINOPHILS % (AUTO) 0.8 %; HCT - HEMATOCRIT 31.6 % (37.0-47.0); HGB - HEMOGLOBIN 10.2 g/dL (12.0-16.0); LYMPHOCYTES # (AUTO) 2.2 10^3/uL (1.5-3.5); LYMPHOCYTES % (AUTO) 21.5 %; MEAN CORPUSCULAR HEMOGLOBIN 29.7 pg (27.0-31.0); MEAN CORPUSCULAR HGB CONC 32.3 g/dL (32.0-36.0); MEAN CORPUSCULAR VOLUME 92.1 fL (81.0-99.0); MEAN PLATELET VOLUME 10.1 fL (7.9-10.8); MONOCYTES % (AUTO) 9.7 %; NEUTROPHILS % (AUTO) 67.1 %; PLT - PLATELET COUNT 296 10^3/uL (130-450); RED BLOOD COUNT 3.43 10^6/uL (4.20-5.40); RED CELL DISTRIBUTION WIDTH 14.1 % (12.0-15.0); WHITE BLOOD COUNT 10.4 x10^3/uL (4.8-10.8)
[2020-11-20 06:52] LABS: ALBUMIN 3.4 g/dL (3.2-5.5); ALBUMIN/GLOBULIN RATIO 1.3 (1.0-2.2); CALCIUM 8.6 mg/dL (8.5-10.3); CREATININE 0.7 mg/dL (0.4-1.0); POTASSIUM 3.5 mmol/L (3.5-5.0); TOTAL PROTEIN 6.1 g/dL (6.7-8.2)
[2020-11-20] MEDS: polyethylene glycoL 3350 17 GM PACKET PO SCH (08:50)
[2020-11-20] MEDS: ENOXAPARIN 40 MG/0.4 ML SYRINGE SUBQ SCH (08:50)
[2020-11-20] MEDS: DOCUSATE SODIUM 100 MG CAPSULE PO SCH (08:50)
--- NOTE | 2020-11-20 14:57 | DISCHARGE SUMMARY ---
"Discharge Summary Admit Date: 11/18/20 Discharge Date: 11/20/20 Discharging Provider: Nilda Condition at Discharge: Good Discharge Disposition: 01 Home, Self Care - DIAGNOSES Admission Diagnoses: 1. Hematochezia 2. Tissue prolapse, anal 3. Multiple failed prior anorectal procedures 4. Pelvic floor dysfunction 5. Incontinence 6. Reflux, gastrointestinal 7. Hypertension Discharge Diagnoses with Status of Each Condition: 1. Hematochezia - Evaluated/Biopsied 2. Rectal prolapse - Repaired/Corrected 3. Multiple failed prior anorectal procedures 4. Pelvic floor dysfunction - Repaired 5. Incontinence - Treated 6. Reflux, gastrointestinal - Stable 7. Hypertension - Stable 8. Rectocele - Repaired 9. Sphincter injury, historic - Repaired - HPI History of Present Illness: 75-year-old female with history of bright red blood per rectum. She also has multiple historic anorectal procedures. Seen by Dr. Brittney Bianchi for concerns of possible hemorrhoid. In the setting of suspected prolapse she was referred to colorectal for further evaluation. Patient was counseled that examined anesthesia would be essential. Moreover it would be optimal to perform colonoscopy simultaneous with random biopsy. Risk and benefits discussed questions answered informed consent were obtained. - CONSULTS | PROCEDURES Procedures: Pre-Op Diagnosis: Bright red blood per rectum; hemorrhoidal prolapse; multiple prior anorectal procedures Procedure Performed: 1. Examined anesthesia 2. Intraoperative colonoscopy 3. Altmeyer procedure 4. Rectocele repair 5. Levator plasty 6. Pudendal block Post Op Diagnosis: Rectal prolapse; rectocele; sphincteric laxity - HOSPITAL COURSE Hospital Course: Patient underwent above listed procedure without any complication. Patient underwent operative intervention as listed in the electronic medical record. Tolerated procedure well for which there was no complication. Postoperatively the patient was managed for postoperative analgesia and resumption of bowel function. Patient had successfully passed trial of void with discontinuation of Silva. Tolerated oral intake without any complication. Denied nausea denied vomiting. Was advanced for diet without any complication. Anal packing was removed by me on postoperative day 1/2. Patient was tolerating oral analgesia, p.o. nutrition with soft diet, voiding spontaneously, with positive resumption of bowel function. Afebrile hemodynamically acceptable. Electrolytes repleted throughout and blood counts as a relates to risks of anemia in the perioperative setting and leukocytosis as an inflammatory marker were all stable without any concerns. Discharge instructions given. Analgesia with oxycodone provided at time of d ischarge. Patient plan for follow-up and will be notified of pathology once returned. POST ANORECTAL SURGICAL INSTRUCTIONS: 1. Resume anticoagulation, if any, as per specific instructions. Call for any bleeding before resuming anticoagulation. 2. The patient to call for fevers, significant bleeding, severe pain or urinary retention. 3. The patient was advised to remove anal packing on the a.m. of postoperative day #1. 4. The patient to continue with warm tub soaks twice daily unless fistula plug is placed, in which case no submersive baths. 5. The patient to proceed with a high-fiber diet as recommended with mechanical fiber supplementation. 6. The patient to proceed with a bowel regimen including Colace, given narcotics for postoperative pain, and MiraLAX for salvage if fails to have bowel movement within 2 days of operative intervention. If no bowel movement within 3 days, contreras wiggins to call service/office. 7. The patient to follow up with me in one week post procedure. 8. The patient to continue with antibiotics as instructed if prescribed. 9. No driving while taking narcotics, and avoid exertional activity in the immediate post-operative period. ADDITIONAL INSTRUCTIONS: 1. Use calmoseptine for perianal care 2. Leave gauze within the gluteal cleft to accept any drainage 3. Avoid constipating agents in the setting of a fresh anorectal anastomosis 4. Absolutely nothing per rectum outside of colorectal follow-up - ALLERGIES Allergies/Adverse Reactions: Allergies Allergy/AdvReac Type Severity Reaction Status Date / Time Sulfa (Sulfonamide Allergy Mild Rash Verified 03/27/17 14:03 Antibiotics) - MEDICATIONS Home Medications: Ambulatory Orders Medication Instructions Recorded Confirmed Nortriptyline [Pamelor] 25 mg PO DAILY 03/27/17 11/17/20 lisinopriL [Lisinopril] 10 mg PO DAILY 03/27/17 11/17/20 Omeprazole [PriLOSEC] 20 mg PO DAILY 11/17/20 11/17/20 amLODIPine [Norvasc] 10 mg PO DAILY 11/17/20 11/18/20 Ciprofloxacin HCl [Cipro] 250 mg PO BID #20 tablet 11/20/20 Docusate Sodium 100Mg Capsule 100 mg PO BID #30 cap 11/20/20 [Colace 100Mg Capsule] methocarbamoL [Robaxin] 500 mg PO Q6HR PRN #30 tablet 11/20/20 metroNIDAZOLE [Flagyl] 250 mg PO Q8H #30 tablet 11/20/20 oxyCODONE [Roxicodone] 5 mg PO Q4HR PRN #30 tablet 11/20/20 polyethylene glycoL 3350 [Miralax] 17 gm PO DAILY #30 packet 11/20/20 - PHYSICAL EXAM AT DISCHARGE Physical Exam Other/Comments: General Appearance: positive: No acute distress Eyes Bilateral: positive: Normal inspection ENT: positive: ENT inspection nml Neck: positive: Nml inspection Respiratory: positive: Chest non-tender, No respiratory distress, Breath sounds nml. negative: Wheezes, Rales, Rhonchi Cardiovascular: positive: Regular rate & rhythm Abdomen: positive: No distention, Other. negative: Guarding, Rebound Extremities: positive: Non-tender, Full ROM, Nml appearance Neurologic/Psychiatric: positive: Oriented x3, CN's nml (2-12) Perianal ecchymosis as expected. Anastomosis intact. Packing removed. Rectocele repair and intact. - LABS Result Diagrams: 11/20/20 05:40 11/20/20 05:40 - FOLLOW UP Follow Up: one week - TIME SPENT Time Spent in Discharge (Minutes): 60"
--- NOTE | 2020-11-20 14:57 | Discharge Plan ---
Discharge Plan Problem Reviewed?: Yes Disposition: Home, Self Care Condition: Good Prescriptions: oxyCODONE [Roxicodone] 5 mg PO Q4HR PRN #30 tablet PRN Reason: Pain methocarbamoL [Robaxin] 500 mg PO Q6HR PRN #30 tablet PRN Reason: Spasms Ciprofloxacin HCl [Cipro] 250 mg PO BID #20 tablet Docusate Sodium 100Mg Capsule [Colace 100Mg Capsule] 100 mg PO BID #30 cap metroNIDAZOLE [Flagyl] 250 mg PO Q8H #30 tablet polyethylene glycoL 3350 [Miralax] 17 gm PO DAILY #30 packet Diet: Soft Activity Restrictions: Activity as Tolerated Shower Restrictions: No Driving Restrictions: Yes (No driving while taking narcotics) Assessment: POST ANORECTAL SURGICAL INSTRUCTIONS: 1. Resume anticoagulation, if any, as per specific instructions. Call for any bleeding before resuming anticoagulation. 2. The patient to call for fevers, significant bleeding, severe pain or urinary retention. 3. The patient was advised to remove anal packing on the a.m. of postoperative day #1. 4. The patient to continue with warm tub soaks twice daily unless fistula plug is placed, in which case no submersive baths. 5. The patient to proceed with a high-fiber diet as recommended with mechanical fiber supplementation. 6. The patient to proceed with a bowel regimen including Colace, given narcotics for postoperative pain, and MiraLAX for salvage if fails to have bowel movement within 2 days of operative intervention. If no bowel movement within 3 days, patient to call service/office. 7. The patient to follow up with me in one week post procedure. 8. The patient to continue with antibiotics as instructed if prescribed. 9. No driving while taking narcotics, and avoid exertional activity in the immediate post-operative period. ADDITIONAL INSTRUCTIONS: 1. Use calmoseptine for perianal care 2. Leave gauze within the gluteal cleft to accept any drainage 3. Avoid constipating agents in the setting of a fresh anorectal anastomosis 4. Absolutely nothing per rectum outside of colorectal follow-up No Smoking: If you smoke, Please STOP! Call for help. Follow-up with: Sandro Sampson DO [Primary Care Provider] - Grover Munguia MD [Provider Admit Priv/Credential] -
[2020-11-20 16:14] VITALS: BP 157/56
== END 2020-11-20 16:30 | disposition home or self-care (01) | DRG 395 ==
LOC: SDS 13:44 → MS3 19:11
PROVIDERS: ADMIT Surgery; ATTEND Surgery
PROC: 0DBB8ZX Excision of Ileum, Via Natural or Artificial Opening Endoscopic, Diagnostic (ICD-10-PCS; 2020-11-18)
PROC: 0DBE8ZX Excision of Large Intestine, Via Natural or Artificial Opening Endoscopic, Diagnostic (ICD-10-PCS; 2020-11-18)
PROC: 0JQC0ZZ Repair Pelvic Region Subcutaneous Tissue and Fascia, Open Approach (ICD-10-PCS; 2020-11-18)
PROC: 0DBP7ZZ Excision of Rectum, Via Natural or Artificial Opening (ICD-10-PCS; principal; 2020-11-18 15:15)
DX: K62.3 Rectal prolapse (principal); N81.6 Rectocele; K64.8 Other hemorrhoids; K62.89 Other specified diseases of anus and rectum; N81.84 Pelvic muscle wasting; R19.4 Change in bowel habit; I10 Essential (primary) hypertension; K21.9 Gastro-esophageal reflux disease without esophagitis
CPT/HCPCS: 36415; 45130; 45380; 45560; 80053; 85025; A9270; J1170; J1650; J2765; J3490; J7120

== ENCOUNTER 2021-01-30 10:53 | Outpatient (CLI) | payer MEDICARE ==
--- NOTE | 2021-01-30 12:03 | XRAY Report ---
PROCEDURE: Lumbar Spine 2 View INDICATIONS: CHRONIC LOW BACK PX TECHNIQUE: 3 views of the lumbar spine were acquired. COMPARISON: 06/05/2013 FINDINGS: Bones: 5 [id number] vertebrae are present. There is normal bony alignment. No vertebral body compression fractures. No suspicious bony lesions. Mild L4-5 and L5-S1 disc space narrowing and hyp ertrophic facet joints noted. Soft tissues: Overlying bowel gas pattern is normal. No suspicious soft tissue calcifications. IMPRESSION: Mild degenerative disc disease and arthropathy in the lower lumbar spine Reviewed by: Trace Ferrer MD on 01/30/2021 11:02 AM GABBY Approved by: Trace Ferrer MD on 01/30/2021 11:02 AM GABBY Station ID: [id number]
--- NOTE | 2021-01-30 12:33 | XRAY Report ---
PROCEDURE: Hip w/Pelvis 1V RT INDICATIONS: ARTHRITIS, R HIP TECHNIQUE: AP pelvis with lateral view(s) of the right hip(s). COMPARISON: AP pelvis 03/15/2020.. FINDINGS: Bones: No fractures or dislocations. No avascular necrosis of the right femoral head. Mild bilatera l joint space narrowing. Acetabular roof sclerosis. Small osteophytes. Pelvic ring appears intact. N o suspicious bony lesions. Soft tissues: The visualized bowel gas pattern is normal. No suspicious soft tissue calcifications. IMPRESSION: Mild to moderate right hip DJD. Reviewed by: Ady Redman MD on 01/30/2021 12:32 PM PDT Approved by: Ady Redman MD on 01/30/2021 12:32 PM PDT Station ID: [id number]
== END 2021-01-30 10:54 | disposition home or self-care (01) ==
LOC: DI.N 10:53
PROVIDERS: ATTEND Family Medicine
DX: M51.36 Other intervertebral disc degeneration, lumbar region (principal); M47.816 Spondylosis without myelopathy or radiculopathy, lumbar region; M16.11 Unilateral primary osteoarthritis, right hip

== ENCOUNTER 2021-02-07 10:34 | Outpatient (CLI) | payer MEDICARE ==
--- NOTE | 2021-02-07 12:07 | MRI Report ---
PROCEDURE: Hip RT W/O INDICATIONS: RIGHT HIP ARTHRITIS TECHNIQUE: Noncontrast coronal T1 spin echo and STIR through the bony pelvis. Coronal and axial T2 fast spin ec ho with fat saturation, sagittal T1 spin echo, and oblique axial T2 fast spin echo with fat saturatio n through the hip. COMPARISON: None. Findings: Musculature: T2 hyperintense signal within obturator internus and externus. Labrum: Maintained without evidence of tear or paravertebral cyst. Bones: T2 hyperintense/T1 hypointense signal is seen within the femoral head, measuring up to 1.7 cm . No abnormal contour or collapse of the femoral head is appreciated. T2 hyperintense signal is also noted within the medial acetabulum, which may reflect synovial herniat ion and/or intraosseous edema. 3.7 mm T2 hyperintense focus in the superior aspect of the femoral head/neck junction, compatible wit h synovial herniation. A mild to moderate hip joint effusion is seen. Pelvic structures: The lower pelvic intraperitoneal structures are unremarkable. Impression: 1.Intramuscular edema involving the obturator internus and externus, which may reflect injury or infl ammation. 2.Abnormal signal in the femoral head, concerning for developing avascular necrosis versus osteochond ral injury. 3.Mild to moderate hip joint effusion. 4.Edematous signal within the medial acetabulum, which may reflect synovial herniation or intraosseou s edema. Reviewed by: Danielito Germain MD on 02/07/2021 12:06 PM PDT Approved by: Danielito Germain MD on 02/07/2021 12:06 PM PDT Station ID: [id number]
== END 2021-02-07 10:35 | disposition home or self-care (01) ==
LOC: DI 10:34
PROVIDERS: ATTEND Family Medicine
DX: M12.851 Other specific arthropathies, not elsewhere classified, right hip (principal); M25.451 Effusion, right hip

== ENCOUNTER 2021-03-06 08:00 | Outpatient (CLI) | payer MEDICARE | END 2021-03-06 23:59 | disposition home or self-care (01) | LOC: LAB.N 08:00 | PROVIDERS: ATTEND Physician Assistant Medical | DX: N30.00 Acute cystitis without hematuria (principal) | CPT/HCPCS: 87086 ==

== ENCOUNTER 2021-05-03 08:00 | Outpatient (CLI) | payer MEDICARE ==
[2021-05-03 18:20] LABS: BASOPHILS # (AUTO) 0.1 10^3/uL (0.0-0.1); BASOPHILS % (AUTO) 0.7 %; EOSINOPHILS # (AUTO) 0.1 10^3/uL (0.0-0.7); EOSINOPHILS % (AUTO) 1.2 %; HCT - HEMATOCRIT 38.6 % (37.0-47.0); HGB - HEMOGLOBIN 12.7 g/dL (12.0-16.0); LYMPHOCYTES # (AUTO) 2.6 10^3/uL (1.5-3.5); LYMPHOCYTES % (AUTO) 29.4 %; MEAN CORPUSCULAR HEMOGLOBIN 30.6 pg (27.0-31.0); MEAN CORPUSCULAR HGB CONC 32.9 g/dL (32.0-36.0); MEAN PLATELET VOLUME 10.5 fL (7.9-10.8); MONOCYTES # (AUTO) 0.7 10^3/uL (0.0-1.0); MONOCYTES % (AUTO) 7.7 %; NEUTROPHILS # (AUTO) 5.3 10^3/uL (1.5-6.6); NEUTROPHILS % (AUTO) 60.5 %; PLT - PLATELET COUNT 396 10^3/uL (130-450); RED BLOOD COUNT 4.15 10^6/uL (4.20-5.40); RED CELL DISTRIBUTION WIDTH 14.1 % (12.0-15.0); WHITE BLOOD COUNT 8.8 x10^3/uL (4.8-10.8)
[2021-05-03 18:24] LABS: % IRON SATURATION 24 % (20-50); ALBUMIN 4.1 g/dL (3.2-5.5); ALBUMIN/GLOBULIN RATIO 1.1 (1.0-2.2); ALKALINE PHOSPHATASE 78 IU/L (42-121); ALT ALANINE AMINOTRANSFERASE 26 IU/L (10-60); AST ASPARTATE AMINOTRANSFERASE 26 IU/L (10-42); BILIRUBIN,TOTAL 0.6 mg/dL (0.2-1.0); BUN - BLOOD UREA NITROGEN 20 mg/dL (6-20); CALCIUM 9.7 mg/dL (8.5-10.3); CARBON DIOXIDE - CO2 27 mmol/L (21-32); CHLORIDE 98 mmol/L (101-111); CHOL/HDL RATIO 2.3 (<4.4); CHOLESTEROL 191 mg/dL; CREATININE 0.6 mg/dL (0.4-1.0); GFR - MDRD 97 (>89); GLUCOSE 92 mg/dL (70-100); HDL CHOLESTEROL 84 mg/dL; IRON 98 ug/dL (28-170); LDL CHOLESTEROL,CALCULATED 87 mg/dL; POTASSIUM 4.1 mmol/L (3.5-5.0); SODIUM 137 mmol/L (135-145); TOTAL IRON BINDING CAPACITY 402 ug/dL (250-450); TOTAL PROTEIN 7.8 g/dL (6.7-8.2); TRANSFERRIN 287 mg/dL (192-382); TRIGLYCERIDES 99 mg/dL; VLDL CHOLESTEROL 20 mg/dL
[2021-05-03 18:42] LABS: FERRITIN 62.7 ng/mL (11.0-306.8)
[2021-05-03 19:59] LABS: ESTIMATED AVERAGE GLUCOSE 126 mg/dL (70-100)
== END 2021-05-03 23:59 ==
LOC: LAB.WCP 08:00
PROVIDERS: ATTEND Family Medicine
DX: E11.9 Type 2 diabetes mellitus without complications (principal); D64.9 Anemia, unspecified
CPT/HCPCS: 36415; 80053; 80061; 82607; 82728; 83036; 83540; 83721; 84466; 85025

== ENCOUNTER 2021-06-15 08:00 | Outpatient (CLI) | payer MEDICARE ==
--- NOTE | 2021-06-15 14:54 | XRAY Report ---
PROCEDURE: Shoulder 2 View LT INDICATIONS: SHOULDER PAIN, LEFT TECHNIQUE: 2 views of the shoulder were acquired. COMPARISON: None. FINDINGS: Bones: No fractures or dislocations. No suspicious bony lesions. Visualized ribs appear intact. P eriarticular osteophyte formation at the acromioclavicular and glenohumeral joints. Soft tissues: No suspicious soft tissue calcifications. IMPRESSION: Osteoarthritis. No acute fracture. No osseous lesion. If symptoms and/or clinical suspic ion for pathology continue, further assessment with repeat plain films, or advanced imaging (e.g., CT , MRI, or bone scan) is recommended for further assessment. Reviewed by: Lorena De La Fuente MD on 06/15/2021 2:53 PM PST Approved by: Lorena De La Fuente MD on 06/15/2021 2:53 PM PST Station ID: [id number]
== END 2021-06-15 23:59 ==
LOC: DI.N 08:00
PROVIDERS: ATTEND Family Medicine
DX: M19.012 Primary osteoarthritis, left shoulder (principal)

== ENCOUNTER 2021-06-15 10:30 | Outpatient (CLI) | payer MEDICARE | END 2021-06-15 10:31 | disposition home or self-care (01) | LOC: LAB.N 10:30 | PROVIDERS: ATTEND Family Medicine | DX: Z53.9 Procedure and treatment not carried out, unspecified reason (principal) ==

== ENCOUNTER 2022-01-09 14:40 | Outpatient (CLI) | payer MEDICARE ==
--- NOTE | 2022-01-10 12:51 | Mammography Report ---
BILATERAL DIGITAL SCREENING MAMMOGRAM 3D/2D: 01/09/2022 CLINICAL: Routine screening. Comparison is made to exams dated: 04/12/2020 mammogram, 05/27/2018 mammogram, 05/08/2017 mammogram, 1 06/06/2015 mammogram, 03/28/2015 mammogram, and 02/18/2013 mammogram - [facility]. There are scattered areas of fibroglandular density in both breasts (category b / 25%-50% glandular t issue). No significant masses, calcifications, or other findings are seen in either breast. There has been no significant interval change. IMPRESSION: NEGATIVE There is no mammographic evidence of malignancy. A 1 year screening mammogram is recommended. Based on the Tyrer Cuzick model (a risk assessment model) the patients lifetime risk is 2.1% and her 10 year risk is 0.0%. According to the ACR, ACS, and NCCN guidelines, an annual breast MRI exam hiro g with mammogram is recommended if the patients lifetime risk is 20% or greater. This exam was interpreted at Station ID: [id number]. NOTE: For mammograms, a report in lay terms will be sent to the patient. Approximately 15% of breast malignancies will not be visualized mammographically. In the management of a palpable breast mass, a negative mammogram must not discourage biopsy of a clinically suspicious lesion. Electronically Signed By: Carlos [email or web address]/deb:01/10/2022 09:35:18 ACR BI-RADS Category 1: Negative 3341F PARENCHYMAL PATTERN: (A) - The breast(s) demonstrate(s) scattered fibroglandular densities. BI-RADS CATEGORY: (1) - 1 RECOMMENDATION: (ANNUAL) - Recommend routine annual screening mammography. [id number] 1 year screening LATERALITY: (B)
== END 2022-01-09 14:41 | disposition home or self-care (01) ==
LOC: DI.N 14:40
PROVIDERS: ATTEND Physician Assistant
DX: Z12.31 Encounter for screening mammogram for malignant neoplasm of breast (principal)

== ENCOUNTER 2023-02-03 11:14 | Outpatient (CLI) | payer MEDICARE ==
--- NOTE | 2023-02-03 14:41 | XRAY Report ---
PROCEDURE: Chest 2 View X-Ray INDICATIONS: ACUTE COUGH TECHNIQUE: 2 views of the chest were acquired. COMPARISON: None. FINDINGS: Surgical changes and devices: Right shoulder arthroplasty change. Lungs and pleura: No pleural effusions or pneumothorax. Lungs are clear. Mediastinum: Mediastinal contours appear normal. Heart size is normal. Bones and chest wall: No suspicious bony lesions. Overlying soft tissues appear unremarkable. IMPRESSION: No acute cardiopulmonary process. Reviewed by: Lesley Crespo MD on 02/03/2023 2:40 PM PDT Approved by: Lesley Crespo MD on 02/03/2023 2:40 PM PDT Station ID: [id number]
== END 2023-02-03 11:15 | disposition home or self-care (01) ==
LOC: DI 11:14
PROVIDERS: ATTEND Registered Nurse
DX: R05.1 Acute cough (principal)

== ENCOUNTER 2023-02-26 13:29 | Outpatient (CLI) | payer MEDICARE ==
[2023-02-26 18:03] LABS: BASOPHILS % (AUTO) 0.6 %; EOSINOPHILS % (AUTO) 2.3 %; HCT - HEMATOCRIT 39.7 % (37.0-47.0); LYMPHOCYTES % (AUTO) 32.6 %; MEAN CORPUSCULAR HGB CONC 32.7 g/dL (32.0-36.0); MEAN CORPUSCULAR VOLUME 91.7 fL (81.0-99.0); MEAN PLATELET VOLUME 10.5 fL (7.9-10.8); MONOCYTES % (AUTO) 7.8 %; NEUTROPHILS % (AUTO) 56.5 %; PLT - PLATELET COUNT 399 10^3/uL (130-450); RED BLOOD COUNT 4.33 10^6/uL (4.20-5.40); RED CELL DISTRIBUTION WIDTH 13.5 % (12.0-15.0); WHITE BLOOD COUNT 9.9 x10^3/uL (4.8-10.8)
[2023-02-26 18:04] LABS: INR 1.2 (0.8-1.2); PT - PROTHROMBIN TIME 12.9 secs (9.9-12.6)
[2023-02-26 18:13] LABS: PARTIAL THROMBOPLASTIN TIME 35.5 secs (24.9-33.3)
[2023-02-26 18:14] LABS: ABNORMAL LYMPHS % (MANUAL) 0 %
[2023-02-26 18:31] LABS: ALBUMIN 4.2 g/dL (3.2-5.5); ALBUMIN/GLOBULIN RATIO 1.5 (1.0-2.2); ALKALINE PHOSPHATASE 63 IU/L (42-121); ALT ALANINE AMINOTRANSFERASE 26 IU/L (10-60); AST ASPARTATE AMINOTRANSFERASE 25 IU/L (10-42); BILIRUBIN,TOTAL 0.4 mg/dL (0.2-1.0); BUN - BLOOD UREA NITROGEN 16 mg/dL (6-20); CALCIUM 9.8 mg/dL (8.5-10.3); CARBON DIOXIDE - CO2 30 mmol/L (21-32); CHLORIDE 103 mmol/L (101-111); CHOLESTEROL 179 mg/dL; CREATININE 0.7 mg/dL (0.6-1.3); GFR - MDRD 81 (>89); GLUCOSE 112 mg/dL (74-104); HDL CHOLESTEROL 59 mg/dL; LDL CHOLESTEROL,CALCULATED 81 mg/dL; LDL/HDL RATIO 1.4 (<4.4); POTASSIUM 4.2 mmol/L (3.5-4.5); SODIUM 138 mmol/L (135-145); TRIGLYCERIDES 196 mg/dL (48-352); VLDL CHOLESTEROL 39 mg/dL
[2023-02-26 18:47] LABS: BAND NEUTROPHILS % (MANUAL) 2 %; EOSINOPHILS # (MANUAL) 0.3 10^3/uL (0-0.7); LYMPHOCYTES # (MANUAL) 2.1 10^3/uL (1.5-3.5); LYMPHOCYTES % (MANUAL) 14 %; MONOCYTES # (MANUAL) 0.7 10^3/uL (0.0-1.0); NEUTROPHILS # (MANUAL) 6.8 10^3/uL (1.5-6.6); REACTIVE LYMPHS % (MANUAL) 7 %
[2023-02-26 18:48] LABS: PLATELET ESTIMATE, MANUAL NORMAL (130-450,000) (NORMAL); PLATELET MORPHOLOGY NORMAL APPEARANCE (NORMAL); RBC MORPHOLOGY (MULTIPLE) NORMAL APPEARANCE (NORMAL)
[2023-02-26 18:49] LABS: DIFFERENTIAL COMMENT MANUAL DIFFERENTIAL
[2023-02-26 18:59] LABS: THYROID STIMULATING HORMONE 1.23 uIU/mL (0.34-5.60)
[2023-02-26 20:34] LABS: ESTIMATED AVERAGE GLUCOSE 128 mg/dL (70-100); HEMOGLOBIN A1c% 6.1 % (4.27-6.07)
== END 2023-02-26 13:30 ==
LOC: LAB.N 13:29
PROVIDERS: ATTEND Physician Assistant
DX: Z01.812 Encounter for preprocedural laboratory examination (principal); E11.9 Type 2 diabetes mellitus without complications; I10 Essential (primary) hypertension
CPT/HCPCS: 36415; 80053; 80061; 83036; 83721; 84443; 85025; 85610; 85730